=== PATIENT | female | born 1955 | race Caucasian/White ===

== ENCOUNTER 2016-11-09 23:02 | Emergency (ER) | payer MEDICAID ==
[~2016-11-09 23:02] MED LIST: FLA500 PO; LAC PO; LEVAQUIN750 MG PO; LEVOTHYROXIN0.075 M2 PO
[2016-11-10 00:31] LABS: BASOPHIL % 0.3 % (0-2); PLATELET COUNT 206 x10^3mcL (130-400); RED CELL DISTRIBUTION WIDTH 13.8 % (11.5-14.5)
[2016-11-10 00:43] LABS: CARBON DIOXIDE 28.3 mmol/L (21-32); CHLORIDE SERUM 104 mmol/L (98-107); CREATININE SERUM 0.9 mg/dL (0.6-1.0); GFR1 > 60 mL/min; GLUCOSE SERUM 142 mg/dL (74-106); SODIUM SERUM 137 mmol/L (136-145)
[2016-11-10 00:51] LABS: ALBUMIN 3.5 g/dL (3.4-5.0); ALKALINE PHOSPHATASE 72 U/L (46-116); ALT/SGPT 27 U/L (14-59); AST/SGOT 20 U/L (15-37); BILIRUBIN TOTAL 0.2 mg/dL (0.20-1.00); TOTAL PROTEIN, SERUM 7.7 g/dL (6.4-8.2)
[2016-11-10 01:20] LABS: AMPHETAMINE QUAL UR NONE DETECTED (NEG <=1000)
[2016-11-10 02:39] VITALS: BP 118/67
== END 2016-11-10 02:39 | disposition home or self-care (01) ==
LOC: ED 23:02
PROVIDERS: Emergency Medicine
DX: R53.1 Weakness (principal); R42 Dizziness and giddiness; R11.0 Nausea; R20.2 Paresthesia of skin
CPT/HCPCS: 36415; 83880; Q0092